=== PATIENT | female | born 1955 | race Caucasian/White ===

== ENCOUNTER → 2017-02-11 | Outpatient (CLI) | payer OTHER | END | disposition home or self-care (01) | LOC: RESCLI 08:23 | DX: L20.84 Intrinsic (allergic) eczema (principal); E11.9 Type 2 diabetes mellitus without complications; E03.8 Other specified hypothyroidism ==

== ENCOUNTER → 2017-02-12 | Outpatient (CLI) | payer OTHER ==
[2017-02-12 07:58] LABS: BASO % 0.1 % (0.0-1.0); HEMATOCRIT 40.9 % (37.0-47.0); HEMOGLOBIN 12.5 g/dl (12.0-16.0); IG # 0.1 10*3/uL (0.0-0.1); LYMPH # 0.7 10*3/uL (1.3-4.4); LYMPH % 8.4 % (27.0-41.0); MEAN CELL VOLUME 76.6 fl (81.0-99.0); MEAN CORPUSCULAR HGB 23.4 pg (27.0-31.0); MEAN CORPUSCULAR HGB CONC 30.6 g/dl (33.0-37.0); MEAN PLATELET VOLUME 8.9 fl (9.6-12.3); MONO # 0.3 10*3/uL (0.1-1.0); MONO % 2.8 % (3.0-9.0); NEUT # 7.7 10*3/uL (2.3-7.9); PLATELET COUNT AUTOMATED 302 10*3/uL (130-400); RED BLOOD COUNT 5.34 10*6/uL (4.10-5.10); WHITE BLOOD COUNT 8.8 10*3/uL (4.8-10.8)
[2017-02-12 08:35] LABS: ALBUMIN 3.7 gm/dl (3.1-4.5); BILIRUBIN, TOTAL 0.2 mg/dl (0.2-1.0); BUN 11 mg/dl (7-24); CARBON DIOXIDE 27 mmol/L (21-32); CHLORIDE 105 mmol/L (98-107); EST GLOM FILT AFRICAN AMERICAN > 60 ml/min; GLUCOSE 141 mg/dL (65-99); POTASSIUM 4.4 mmol/L (3.5-5.1); SGOT/AST 36 IU/L (3-35); SGPT/ALT 47 U/L (12-78); SODIUM 141 mmol/L (136-145); TOTAL PROTEIN 8.2 gm/dL (6.4-8.2)
[2017-02-12 08:38] LABS: ALKALINE PHOSPHATASE 187 U/L (45-117)
== END | disposition home or self-care (01) ==
LOC: LAB 02:02
PROVIDERS: Internal Medicine
DX: L20.84 Intrinsic (allergic) eczema (principal); R79.89 Other specified abnormal findings of blood chemistry

== ENCOUNTER → 2017-02-18 | Outpatient (CLI) | payer OTHER | END | disposition home or self-care (01) | LOC: LAB 08:29 → RESCLI 08:29 | PROVIDERS: Internal Medicine | DX: L23.9 Allergic contact dermatitis, unspecified cause (principal) ==

== ENCOUNTER → 2017-02-23 | Outpatient (CLI) | payer OTHER | END | disposition home or self-care (01) | LOC: RESCLI 13:46 | DX: E11.9 Type 2 diabetes mellitus without complications (principal); R21 Rash and other nonspecific skin eruption; E03.8 Other specified hypothyroidism ==

== ENCOUNTER 2017-08-27 14:59 | Emergency (ER) | payer OTHER ==
[~2017-08-27] VITALS: Ht 157.4 cm; Wt 56.7 kg
[2017-08-27 16:07] VITALS: BP 140/63
[2017-08-27] MEDS ORDERED: Tobrex Ophth S2.5 ML OPH (16:17)
== END 2017-08-27 16:40 | disposition home or self-care (01) ==
LOC: ED 14:59
DX: H10.89 Other conjunctivitis (principal); R03.0 Elevated blood-pressure reading, without diagnosis of hypertension

== ENCOUNTER → 2018-05-25 | Outpatient (CLI) | payer OTHER ==
[~2018-05-25] MED LIST: Tobrex Ophth S2.5 ML OPH
== END | disposition home or self-care (01) ==
LOC: RAD 01:08
DX: M85.89 Other specified disorders of bone density and structure, multiple sites (principal); E03.9 Hypothyroidism, unspecified; Z78.0 Asymptomatic menopausal state; Z90.710 Acquired absence of both cervix and uterus; Z90.722 Acquired absence of ovaries, bilateral

== ENCOUNTER → 2018-12-08 | Outpatient (CLI) | payer OTHER ==
[~2018-12-08] MED LIST changes: +ASPIRIN CHEWABL81 MG PO; +LEVOTHYROXINE75 MCG PO; +METFORMIN HYDR500 MG PO; +SIMVASTATIN5 MG PO; +VYTORIN 10-101 EACH PO
== END | disposition home or self-care (01) ==
LOC: MAMMO 06:49
DX: Z12.31 Encounter for screening mammogram for malignant neoplasm of breast (principal)

== ENCOUNTER 2019-03-22 11:28 | Inpatient (IN) | payer OTHER ==
[~2019-03-22] VITALS: Ht 157.4 cm; Wt 57.7 kg
--- NOTE | ~2019-03-22 | ST ---
[place], [place] EXERCISE STRESS TEST REPORT NAME: NANY HUNTER [facility] #: [id number] UNIT #: [id number] ROOM: 404 DOCTOR: SUE BUENO BIRTHDATE: [birth year] DOS: 03/23/2019 INDICATIONS: Chest pain. PROTOCOL: Exercise SPECT myocardial perfusion imaging, Martínez protocol. Baseline EKG showed normal sinus rhythm with normal axis, normal intervals. Resting heart rate 85 beats per minute with a baseline blood pressure of 124/70. The patient exercised for a total of 5 minutes 30 seconds, achieving a peak heart rate of 147, which is 94% of the predicted maximum. Peak blood pressure was 138/70 mmHg. The patient reported no chest pain. Total workload achieved 6.8 METs. Stress EKG showed no evidence of ischemia. No arrhythmias were noted. Occasional PVCs were seen. IMPRESSION: 1. No evidence of ischemia on stress EKG. 2. Normal blood pressure response to exercise. 3. Normal heart rate recovery. 4. Average functional capacity. 5. Nuclear images to be reported separately. Dr. SUE BUENO MD CM:STRESS:EXERCISE STRESS TEST REPORT [id number] SUE BUENO
--- NOTE | ~2019-03-22 | EKG ---
[place], [place] ELECTROCARDIOGRAM REPORT NAME: NANY HUNTER UNIT #: [id number] ROOM: 404 DOCTOR: MEAGHAN DRAFT REPORT BIRTHDATE: [birth year] [facility] Test Date: 2019-03-22 Test Time: 11:31:19 Pat Name: NANY HUNTER Department: Room: 404 Gender: F Tag Writer: : 1955 Requested By: VIVEK CHANEY Order Number: [id number] Reading MD: Derik Dye MD Measurements Intervals [place] Rate: 95 P: 71 [place]: 149 QRS: 71 QRSD: 96 T: 47 QT: 349 QTc: 439 Interpretive Statements Sinus rhythm Electronically Signed On 03-23-2019 8:03:27 PDT by Derik Dye MD CM:EKGRPT:ELECTROCARDIOGRAM REPORT [id number] VIVEK HARDING DRAFT REPORT VIVEK CHANEY M.D.
--- NOTE | ~2019-03-22 | EKG ---
[place], [place] ELECTROCARDIOGRAM REPORT NAME: NANY HUNTER UNIT #: [id number] ROOM: 404 DOCTOR: MEAGHAN DRAFT REPORT BIRTHDATE: [birth year] [facility] Test Date: 2019-03-22 Test Time: 18:01:04 Pat Name: NANY HUNTER Department: Room: 404 Gender: F Tax Processor: : 1955 Requested By: VIVEK CHANEY Order Number: [id number] Reading MD: Derik Dye MD Measurements Intervals [place] Rate: 74 P: 55 [place]: 176 QRS: 51 QRSD: 97 T: 45 QT: 379 QTc: 421 Interpretive Statements Sinus rhythm Electronically Signed On 03-23-2019 8:21:04 PDT by Derik Dye MD CM:EKGRPT:ELECTROCARDIOGRAM REPORT [id number] VIVEK HARDING DRAFT REPORT VIVEK CHANEY M.D.
--- NOTE | ~2019-03-22 | EKG ---
[place], [place] ELECTROCARDIOGRAM REPORT NAME: NANY HUNTER UNIT #: [id number] ROOM: 404 DOCTOR: MEAGHAN DRAFT REPORT BIRTHDATE: [birth year] [facility] Test Date: 2019-03-22 Test Time: 14:45:39 Pat Name: NANY HUNTER Department: Room: 404 Gender: F Rn Perioperative: : 1955 Requested By: VIVEK CHANEY Order Number: [id number] Reading MD: Derik Dye MD Measurements Intervals [place] Rate: 72 P: 28 [place]: 156 QRS: 38 QRSD: 92 T: 43 QT: 374 QTc: 410 Interpretive Statements Sinus rhythm Electronically Signed On 03-23-2019 8:14:42 PDT by Derik Dye MD CM:EKGRPT:ELECTROCARDIOGRAM REPORT [id number] VIVEK HARDING DRAFT REPORT VIVEK CHANEY M.D.
[~2019-03-22 11:28] MED LIST changes: -ASPIRIN CHEWABL81 MG PO; -LEVOTHYROXINE75 MCG PO; -METFORMIN HYDR500 MG PO; -SIMVASTATIN5 MG PO; -VYTORIN 10-101 EACH PO
[2019-03-22] MEDS ORDERED: LEVOTHYROXINE75 MCG PO (11:30)
[2019-03-22] MEDS ORDERED: METFORMIN HYDR500 MG PO (11:30)
[2019-03-22] MEDS ORDERED: ASPIRIN CHEWABL81 MG PO (11:30)
[2019-03-22 11:32] VITALS: BP 122/46
[2019-03-22 11:49] LABS: BASO % 0.4 % (0.0-1.0); EOS # 0.1 10*3/uL (0.0-0.4); EOS % 1.3 % (1.0-4.0); HEMATOCRIT 38.6 % (37.0-47.0); HEMOGLOBIN 12.2 g/dl (12.0-16.0); LYMPH # 1.8 10*3/uL (1.3-4.4); LYMPH % 26.2 % (27.0-41.0); MEAN CELL VOLUME 84.3 fl (81.0-99.0); MEAN CORPUSCULAR HGB 26.6 pg (27.0-31.0); MEAN CORPUSCULAR HGB CONC 31.6 g/dl (33.0-37.0); MEAN PLATELET VOLUME 8.9 fl (9.6-12.3); MONO # 0.7 10*3/uL (0.1-1.0); MONO % 10.1 % (3.0-9.0); NEUT # 4.2 10*3/uL (2.3-7.9); NEUT % 61.4 % (47.0-73.0); PLATELET COUNT AUTOMATED 281 10*3/uL (130-400); RED BLOOD COUNT 4.58 10*6/uL (4.10-5.10); RED CELL DISTRI WIDTH 13.3 % (0-14.5); WHITE BLOOD COUNT 6.8 10*3/uL (4.8-10.8)
[2019-03-22 12:00] LABS: ACT PARTIAL THROMBO TIME 25.4 SECONDS (20.0-32.1); INTERNATIONAL NORM RATIO 0.9 (2.0-3.5)
[2019-03-22 12:06] LABS: ALBUMIN 3.5 gm/dl (3.1-4.5); ALKALINE PHOSPHATASE 171 U/L (45-117); BUN 10 mg/dl (7-24); CHLORIDE 104 mmol/L (98-107); CREATININE 0.72 mg/dL (0.55-1.02); SGOT/AST 24 IU/L (3-35); SGPT/ALT 29 U/L (12-78); SODIUM 141 mmol/L (136-145); TOTAL PROTEIN 7.7 gm/dL (6.4-8.2)
[2019-03-22 12:11] VITALS: BP 115/50
[2019-03-22 12:12] LABS: TROPONIN I < 0.015 ng/ml (<0.045)
[2019-03-22 12:48] VITALS: BP 113/56
--- NOTE | 2019-03-22 14:43 | NUR ---
PT WITH A TRAY ORDERED AND NO ADDITIONAL COMPLAINTS VOICED,PT WITH SAFETY PRECAUTIONS INTACT AND CALL LIGHT WITHIN REACH.
[2019-03-22 15:27] VITALS: BP 116/60
--- NOTE | 2019-03-22 16:00 | NUR ---
A 63, admitted to , under the services of MARIA ISABEL Chicas DO with a diagnosis of CHEST PAIN. Chief complaint is CHEST PAIN RADIATING TO BACK AND NECK.. Patient arrived via wheel chair from ER. Monitor applied. Initial assessment completed. Vital signs taken and recorded. MARIA ISABEL CHICAS DO notified of admission to the unit. Orders received. See assessment for past medical history, medications and allergies. Patient and/or family oriented to unit. [facility] reviewed. Clothing/patient valuable form completed. NARCISO RYDER
[2019-03-22] MEDS ORDERED: SIMVASTATIN5 MG PO (16:34)
--- NOTE | 2019-03-22 16:36 | NUR ---
[facility] CARDIOLOGY ANSWERING SERVICE NOTIFIED OF CONSULT
[2019-03-22 16:55] VITALS: BP 118/59
[2019-03-22] MEDS ORDERED: VYTORIN 10-101 EACH PO (19:30)
[2019-03-22 20:00] VITALS: BP 112/58
[2019-03-23] VITALS: BP 119/61
--- NOTE | 2019-03-23 03:38 | NUR ---
PATIENT RESTING IN BED WITH NO S/S OF DISTRESS. RESPS EASY AND REGULAR. BED IN LOWEST POSITION, CALL LIGHT IN REACH
[2019-03-23 06:50] LABS: BASO % 0.4 % (0.0-1.0); EOS # 0.2 10*3/uL (0.0-0.4); EOS % 2.1 % (1.0-4.0); HEMATOCRIT 42.3 % (37.0-47.0); HEMOGLOBIN 13.3 g/dl (12.0-16.0); LYMPH # 2.4 10*3/uL (1.3-4.4); LYMPH % 34.1 % (27.0-41.0); MEAN CELL VOLUME 83.4 fl (81.0-99.0); MEAN CORPUSCULAR HGB 26.2 pg (27.0-31.0); MEAN CORPUSCULAR HGB CONC 31.4 g/dl (33.0-37.0); MEAN PLATELET VOLUME 8.8 fl (9.6-12.3); MONO # 0.7 10*3/uL (0.1-1.0); MONO % 9.1 % (3.0-9.0); NEUT # 3.9 10*3/uL (2.3-7.9); NEUT % 53.9 % (47.0-73.0); PLATELET COUNT AUTOMATED 341 10*3/uL (130-400); RED BLOOD COUNT 5.07 10*6/uL (4.10-5.10); RED CELL DISTRI WIDTH 13.4 % (0-14.5); WHITE BLOOD COUNT 7.2 10*3/uL (4.8-10.8)
[2019-03-23 07:05] LABS: BUN 10 mg/dl (7-24); CHLORIDE 104 mmol/L (98-107); CHOLESTEROL 174 mg/dL (<200); CREATININE 0.72 mg/dL (0.55-1.02); HDL CHOLESTEROL 47 mg/dl (40-60); LDL CHOLESTEROL 93 mg/dL (9-159); POTASSIUM 3.6 mmol/L (3.5-5.1); SODIUM 141 mmol/L (136-145); TRIGLYCERIDES 171 mg/dl (<150); VLDL CHOLESTEROL 34 mg/dL (6-40)
[2019-03-23 07:11] LABS: THYROID STIM HORMONE (HS) 0.307 uIU/ml (0.358-4.75)
[2019-03-23 07:41] LABS: ACT PARTIAL THROMBO TIME 27.1 SECONDS (20.0-32.1); INTERNATIONAL NORM RATIO 0.9 (2.0-3.5)
--- NOTE | 2019-03-23 08:10 | NUR ---
TAKEN DOWN TO CARDIAC REHAB FOR STRESS TEST.
--- NOTE | 2019-03-23 08:25 | NUR ---
INFORMED CONSENT OBTAINED FOR A CARDIOLITE STRESS TEST WITH DR. BUENO. AFTER ASSESSING PATIENT DR BUENO CHANGED FROM PREVIOUS ORDER OF ELLA. RESTING EKG NSR WITH A SUPINE HT RT OF 85 WITH A BP OF 124/70, AND A HT RT OF 96 ABD BP OF 116/70 IN A STANDING POSITION. PT COMPLETED 5:30 OF A FELY PROTOCOL WITH COMPLETION OF 2:30 INTO STAGE II AT 2.5 MPH AND 12% GRADE. REACHED A MAX HT RT OF 147 WHICH IS 94% OF PREDICTEFD MAX WITH A PEAK BP OF 138/70. TEST TERMOINATED DUE TO FATIGUE, HAD A GOOD EXERCISE TOLERANCE. LAST RECOVERY HT RT OF 111 WITH A BP OF 120/64. AWAITING NUCLEAR IMAGES IN STABLE CONDITION.
--- NOTE | 2019-03-23 09:00 | NUR ---
Business Unit Director in to talk to patient. Patient states lives at home with family. There are few steps in the home. Physician: resident clinic Pharmacy: Home health services: none Patient's level of ADLs: INDEPENDENT Patient has working utilities: all working DME: none Follow-up physician's appointment after d/c: will be made by hospitalist nurse director upon discharge Does patient want to access PORTAL?: no Discharge plan discussed with patient, she lives at home, is independent in adls and ambulation, works, drives, she states she will be returning home whena able and denies any home needs. PONCHO CLAIRE
[2019-03-23 12:00] VITALS: BP 120/52
--- NOTE | 2019-03-23 13:45 | NUR ---
Discharge instructions reviewed with patient/family. Patient receptive and verbalizes understanding. Follow-up care arranged. Written instructions given to patient/family. NARCISO RYDER
== END 2019-03-23 13:45 | disposition home or self-care (01) | DRG 552 ==
LOC: ED 11:28 → 4E 15:21 → EDHOLD 15:21 → 4E 15:46
PROVIDERS: Emergency Medicine; ADMIT Internal Medicine
PROC: 3E073KZ Introduction of Other Diagnostic Substance into Coronary Artery, Percutaneous Approach (ICD-10-PCS; principal; 2019-03-23)
PROC: 4A02XM4 Measurement of Cardiac Total Activity, External Approach (ICD-10-PCS; principal; 2019-03-23)
DX: M54.6 Pain in thoracic spine (principal); E83.41 Hypermagnesemia; E78.5 Hyperlipidemia, unspecified; I20.9 Angina pectoris, unspecified; R07.89 Other chest pain; E11.65 Type 2 diabetes mellitus with hyperglycemia; E03.9 Hypothyroidism, unspecified; Z82.49 Family history of ischemic heart disease and other diseases of the circulatory system; Z90.49 Acquired absence of other specified parts of digestive tract; Z90.710 Acquired absence of both cervix and uterus; Z83.3 Family history of diabetes mellitus; Z80.41 Family history of malignant neoplasm of ovary; Z79.82 Long term (current) use of aspirin; Z79.899 Other long term (current) drug therapy; Z79.84 Long term (current) use of oral hypoglycemic drugs; Z79.890 Hormone replacement therapy

== ENCOUNTER → 2019-05-25 | Outpatient (CLI) | payer OTHER ==
[~2019-05-25] MED LIST changes: +ASPIRIN CHEWABL81 MG PO; +LEVOTHYROXINE75 MCG PO; +METFORMIN HYDR500 MG PO; +SIMVASTATIN5 MG PO; +VYTORIN 10-101 EACH PO
== END | disposition home or self-care (01) ==
LOC: RAD 16:44
DX: M16.12 Unilateral primary osteoarthritis, left hip (principal)

== ENCOUNTER → 2019-06-16 | Outpatient (CLI) | payer OTHER | END | disposition home or self-care (01) | LOC: RAD 16:34 | DX: M16.12 Unilateral primary osteoarthritis, left hip (principal) ==

== ENCOUNTER → 2019-06-30 | Day surgery (SDC) | payer OTHER ==
[~2019-06-30] VITALS: Ht 157.4 cm; Wt 58.1 kg
[2019-06-30 07:20] VITALS: BP 122/64
[2019-06-30 08:18] VITALS: BP 126/61
[2019-06-30 08:33] VITALS: BP 140/69
[2019-06-30 08:48] VITALS: BP 129/66
== END | disposition home or self-care (01) ==
LOC: SDC 06-27 10:15
DX: Z12.11 Encounter for screening for malignant neoplasm of colon (principal); E11.9 Type 2 diabetes mellitus without complications; I25.10 Atherosclerotic heart disease of native coronary artery without angina pectoris; Z98.890 Other specified postprocedural states; Z95.5 Presence of coronary angioplasty implant and graft; Z79.899 Other long term (current) drug therapy; Z82.5 Family history of asthma and other chronic lower respiratory diseases; Z83.3 Family history of diabetes mellitus

== ENCOUNTER 2019-11-13 15:49 | Emergency (ER) | payer OTHER ==
[~2019-11-13] VITALS: Wt 59.0 kg
[2019-11-13 16:01] VITALS: BP 140/68
== END 2019-11-13 18:11 | disposition home or self-care (01) ==
LOC: ED 15:49
DX: S01.01XA Laceration without foreign body of scalp, initial encounter (principal); E78.5 Hyperlipidemia, unspecified; Z79.82 Long term (current) use of aspirin; Z79.899 Other long term (current) drug therapy; Z90.49 Acquired absence of other specified parts of digestive tract; Z90.710 Acquired absence of both cervix and uterus; W22.8XXA Striking against or struck by other objects, initial encounter; Y93.89 Activity, other specified; Y92.89 Other specified places as the place of occurrence of the external cause; Y99.8 Other external cause status

== ENCOUNTER → 2024-07-14 | Outpatient (CLI) | payer MEDICARE | END | disposition home or self-care (01) | LOC: RAD 12:59 | PROVIDERS: ATTEND General Practice | DX: M17.12 Unilateral primary osteoarthritis, left knee (principal) ==